=== PATIENT | female | born 1955 | race Caucasian/White ===

== ENCOUNTER → 2022-06-22 13:59 | Outpatient (CLI) | payer MEDICARE, SELFPAY ==
--- NOTE | ~2022-06-22 | DEXA_ITS ---
Bone Density Report Name: LIBIA MILIAN Age: 67 Sex: Female Ethnicity: White Date of : 1955 Indication: postmenopausal; screening for osteoporosis; height loss; Referring Provider: LAURA, STEVIE Garcia Study: Bone densitometry was performed. Exam Date: June 22, 2022 Accession number: [id number] Bone Density: Region BMD T-score Z-score Classification AP Spine (L1-L4) 0.906 -1.3 0.7 Osteopenia Femoral Neck (Left) 0.723 -1.1 0.5 Osteopenia Total Hip (Left) 0.881 -0.5 0.9 Normal Femoral Neck (Right) 0.793 -0.5 1.2 Normal Total Hip (Right) 0.933 -0.1 1.3 Normal Total Hip Mean 0.907 -0.3 1.1 Normal World Health Organization criteria for BMD impression classify patients as: Normal (T-score at or above -1.0), Osteopenia (T-score between -1.0 and -2.5), or Osteoporosis (T-score at or below -2.5). 10-year Fracture Risk: FRAX not reported because: Treated for osteoporosis Clinical Information Provided by Patient: Is being treated for osteoporosis Has used the following medications: Boniva (i.e. ibandronate), Vitamin D, LEVOTHYROXINE Patient maximum height was 64.0 Menopause Age: 44 Drinks caffeinated beverages Onset of menses at age 13 Number of children 2 Impression: The patient has low bone mass, based on the Total Spine T-score. Discussion: It is important to ask patients whether they are taking their medications and to encourage continued and appropriate compliance with their osteoporosis therapies to reduce fracture risk. It is also important to review their risk factors and encourage appropriate calcium and vitamin D intakes, exercise, fall prevention and other lifestyle measures. Follow-Up: Consider a repeat BMD and Vertebral Fracture Assessment (VFA) exam in 2 years or sooner if medically necessary, to reassess this patient's status. Reported by: [facility] on 06/22/2022 2:42:00 PM. Reviewed, dictated and finalized at location [place]
== END ==
PROVIDERS: PCP Internal Medicine; Visit Provider Internal Medicine
DX: Z78.0 Asymptomatic menopausal state (principal); M85.89 Other specified disorders of bone density and structure, multiple sites
CPT/HCPCS: 77080

== ENCOUNTER 2022-08-02 00:26 | Day surgery (SDC) | payer MEDICARE, SELFPAY ==
[2022-07-21 13:09] VITALS: BMI 30.4
[2022-08-02 09:42] VITALS: BP 114/71; PULSE 65; RESP 20; TEMP 36.6; O2SAT 99; BMI 29.8
[2022-08-02] MEDS: LACTATED RINGERS 1,000 ML 150 ML IV CONT (09:54)
--- NOTE | 2022-08-02 09:58 | WPDHPUPDATE1 ---
History and Physical Update Update Date/Time: 08/02/22 09:58 History and Physical has been reviewed, including an updated exam of the patient. There are NO changes in the patient's condition. Risks, benefits, and alternatives have been discussed and questions answered. Patient agrees to proceed with procedure.
--- NOTE | 2022-08-02 10:22 | P.PNAN_ITS ---
Anes - Initial Pre Proc Eval Procedure: Operation Date: 08/02/22 11:15 Proposed Procedures p Esophagogastroduodenoscopy & Screening Colonoscopy - Cuate Cevallos MD Date/Time: 08/02/22 10:22 Surgeon: Cuate Cevallos MD Pre Op Diagnosis: neoplasm screening, iron deficiency anemia Patient Data Age: 67 Gender: F Height: 1.57 m Weight: 74 kg Last Vital Signs Temp 97.8 F 08/02/22 09:42 Pulse 65 08/02/22 09:42 Resp 20 08/02/22 09:42 BP 114/71 08/02/22 09:42 Pulse Ox 99 08/02/22 09:42 O2 Del Method Room Air 08/02/22 09:42 Allergies Allergy/AdvReac Type Severity Reaction Status Date / Time No Known Allergies Allergy Verified 08/02/22 09:40 Home Medications Medication Instructions Recorded Confirmed Type allopurinol 100 mg tablet 100 mg PO DAILY 07/21/22 07/22/22 History cholecalciferol (vitamin D3) 125 125 mcg PO DAILY 07/21/22 07/22/22 History mcg (5,000 unit) tablet (Vitamin D3) ferrous sulfate 325 mg (65 mg 325 mg PO DAILY 07/21/22 07/22/22 History iron) tablet levothyroxine 75 mcg tablet 75 mcg PO DAILY 07/21/22 07/22/22 History lisinopril 10 mg tablet 10 mg PO DAILY 07/21/22 07/22/22 History Patient hx anesthesia problems: none Family hx anesthesia problems: none Results Review: All pre-operative results and documents have been reviewed as part of the pre-operative evaluation. [facility] Past Medical History Medical History HLD (hyperlipidemia) HTN (hypertension) MABEL (iron deficiency anemia) Obese Social History Social History Smoking status: Never smoker Alcohol intake: current Alcohol use details: 1 drink monthly Substance use type: does not use Living arrangements: with family Spiritual care concerns: No Anes - Eval Final PreProcedure Day of Procedure 08/02/22 10:22 Patient weight: obese Heart: regular rate and rhythm Lungs: clear to auscultation Airway: Mallampati scale class II Neurological: alert and oriented Last oral intake: >/= 8 hours ASA classification: II Emergent: no Anesthetic plan: proceed Anesthesia type and monitoring: general GIVS and standard monitoring Results Review: All pre-operative results and documents have been reviewed as part of the pre- operative evaluation. Informed Consent: The patient's anesthetic plan and its attendant risks and benefits were discussed with the patient/family/POA. Questions were solicited and answers provided to the satisfaction of the patient/family/POA.
[2022-08-02 10:57] VITALS: BP 103/59; PULSE 59; RESP 17; TEMP 36.6; O2SAT 98
--- NOTE | 2022-08-02 10:58 | SUR.OPER ---
EGD START 1037, END 1042 COLONOSCOPY START 1047, END 1057
[2022-08-02 11:07] VITALS: BP 112/62; PULSE 54; RESP 15; TEMP 36.6; O2SAT 99
[2022-08-02 11:17] VITALS: BP 112/62; PULSE 52; RESP 15; TEMP 36.6; O2SAT 99
--- NOTE | 2022-08-02 11:51 | SUR.PHASEII ---
Spoke with Lauro at [facility] pharmacy in [facility] regarding Pantoprazole 40mg po daily. States they will have prescription waiting for pt. Pt. verbalized understanding regarding picking up medication and usage. at side.
== END 2022-08-02 11:32 | disposition home or self-care (01) ==
PROVIDERS: PCP Internal Medicine; Visit Provider Internal Medicine Gastroenterology
PROC: 0DJ08ZZ Inspection of Upper Intestinal Tract, Via Natural or Artificial Opening Endoscopic (ICD-10-PCS; CPT 43235; principal; 2022-08-02 11:15)
DX: D50.9 Iron deficiency anemia, unspecified (principal); K22.10 Ulcer of esophagus without bleeding; K57.30 Diverticulosis of large intestine without perforation or abscess without bleeding; K64.8 Other hemorrhoids; I10 Essential (primary) hypertension; E78.5 Hyperlipidemia, unspecified; E66.9 Obesity, unspecified; Z68.29 Body mass index [BMI] 29.0-29.9, adult
CPT/HCPCS: 45378; 43239; 88305; J2704; J7120